=== PATIENT | male | born 1985 ===

== ENCOUNTER 2016-11-12 07:28 | Emergency (ER) | payer OTHER ==
[2016-11-12 07:50] VITALS: BMI 31.4
--- NOTE | 2016-11-12 08:17 | ED PDOC ---
Arrival/HPI - General Chief Complaint: Chest Pain Time Seen by Provider: 11/12/16 08:13 Historian: Patient - History of Present Illness Narrative History of Present Illness (Text): 11/12/16 09:23 A 31 year old male, who denies any past medical history, presents to the Emergency department complaining of one week duration retrosternal chest pain. Patient states chest pain is non-exertional, and denies any shortness of breath. Patient reports he had multiple episodes of chest pain in the past. Time/Duration: 1 week Symptom Onset: Gradual Symptom Course: Unchanged Activities at Onset: Rest Modifying Factors (Text): none Context: Work Associated Symptoms (Text): none Past Medical History - Provider Review Nursing Documentation Reviewed: Yes - Past History Past History: No Previous - Tetanus Immunization Tetanus Immunization: Unknown - Past Medical History Past Medical History: No Previous - Psychiatric Hx Substance Use: No - Past Surgical History Past Surgical History: No Previous - Anesthesia Hx Anesthesia: No Family/Social History - Physician Review Nursing Documentation Reviewed: Yes Family/Social History: No Known Family HX Smoking Status: Never Smoked Hx Alcohol Use: Yes Hx Substance Use: No Allergies/Home Meds Allergies/Adverse Reactions: Allergies No Known Allergies Allergy (Verified 11/12/16 07:50) Review of Systems - Physician Review All systems were reviewed & negative as marked: Yes Physical Exam - Physical Exam Narrative Physical Exam (Text): 11/12/16 09:33 - Review of Systems Constitutional: Normal. absent: Fatigue, Weight Change, Fevers Eyes: Normal ENT: Normal Respiratory: Normal absent: SOB, Cough, Sputum Cardiovascular: Present: Retrosternal Chest pain absent: Palpitations, Syncope Gastrointestinal: Normal absent: Abdominal pain, Diarrhea, Nausea, Vomiting Genitourinary: Normal. absent: Dysuria, Frequency, Hematuria Musculoskeletal: Normal. absent: Arthralgias, Back Pain, Neck Pain Skin: Normal Neurological: Normal absent: Focal Weakness Endocrine: Normal Hemo/Lymphatic: Normal Psychiatric: Normal - Physical exam Patient appears age appropriate, speaking full sentences without difficulty - Systems Exam Head: Present: Atraumatic, Normocephalic Pupils: Present: PERRL Extraocular Muscles: Present: EOMI Conjunctiva: Present: Normal Mouth: Present: Moist Mucous Membranes Neck: Present: Normal Range of Motion. No: MIDLINE TENDERNESS, Paraspinal Tenderness Respiratory/Chest: Present: Tachycardic, Clear to Auscultation, Good Air Exchange. No: Respiratory Distress, Accessory Muscle Use Cardiovascular: Present: Regular Rate and Rhythm, Normal S1, S2, Peripheral Pulses Present. No: Murmurs Abdomen: Present: Normal Bowel Sounds, No: Tenderness, Peritoneal Signs, Rebound, Guarding, Distention Back: Present: Normal Inspection. No: Midline Tenderness, Paraspinal Tenderness Upper Extremity: Present: Normal Inspection. No: Cyanosis, Edema Lower Extremity: Present: Normal Inspection. No: Edema Neurological: Present: GCS=15, Speech Normal, cranial nerves II through XII fully intact with no cerebellar abnormality, neuro-sensory fully intact. No focal neurological deficits. Skin: Present: Warm, Dry, Normal Color. No: Rashes Lymphatic: Present: OX3, NI, NC Psychiatric: Present: Alert, Oriented x 3, Normal Insight, Normal Concentration Vital Signs Reviewed: Yes Vital Signs Temp Pulse Resp BP Pulse Ox 11/12/16 08:37 98.6 F 99 H 18 147/67 98 11/12/16 08:30 98.8 F 115 H 140/80 Temperature: Afebrile Blood Pressure: Normal Pulse: Tachycardic Appearance: Positive for: Well-Appearing, Non-Toxic, Comfortable Pain Distress: None Mental Status: Positive for: Alert and Oriented X 3 Medical Decision Making ED Course and Treatment: 11/12/16 08:16 Impression: 31 year old male complaining of chest pain, with non acute physical exam findings. Plan: -- EKG -- Chest xray -- Labs -- Reassess and disposition Prior Visits: Notes and results from previous visits were reviewed. Patient last seen in the ED on 11/10/16 for similar complaint. Patient had no cardiac risk factors. Patient was advised close output follow up and return precautions. Progress Notes: Patient states made him an appointment with wrapping machine helper already and does not recall wrapping machine helper name. EKG: Ordered, reviewed, and independently interpreted the EKG. Rate : 88 BPM Rhythm : NSR Interpretation : No ST-segment elevations or depressions, no T-wave inversions, normal intervals. Comparison : No previous EKG for comparison. Chest xray: Creator : Perez Groves MD IMPRESSION: No active disease. 11/12/16 10:07 Had a long and extensive d/w patient about f/u with a wrapping machine helper for further workup and testing as well as a primary physician. Explained to patient that although his ER w/u did not show any acute abnormalities, patient still needs further testing which may include an echo, stress test, cardiac cath, or others. pt was offered observation in the hospital, but states he will f/u with a wrapping machine helper instead Pt states he understands to return to the ER right away for new or worsening symptoms or for inability to f/u with PMD or specialist as instructed. Patient states that he fully agrees with and understands discharge instructions. States that she agrees with the plan and disposition. Verbalized and repeated discharge instructions and plan. I have given the patient opportunity to ask any additional questions. - Lab Interpretations Lab Results: 11/12/16 09:00 11/12/16 09:00 Lab Results 11/12/16 09:00: WBC 6.8 D, RBC 4.94, Hgb 15.2, Hct 43.7, MCV 88.5, MCH 30.8, MCHC 34.8, RDW 12.4, Plt Count 252, MPV 10.8, Gran % 51.2, Lymph % (Auto) 39.0 H , [place] % (Auto) 7.2 H, Eos % (Auto) 2.2, Baso % (Auto) 0.4, Gran # 3.48, Lymph # 2.7, [place] # 0.5, Eos # 0.2, Baso # 0.03, PT 10.0, INR 0.93, APTT 28.2, D-Dimer , Quantitative 0.19, Sodium 139, Potassium 4.0, Chloride 102, Carbon Dioxide 23 , Anion Gap 18, BUN 15, Creatinine 0.8, Est GFR ( Amer) > 60, Est GFR ( Non-Af Amer) > 60, Random Glucose 106, Calcium 9.5, Total Bilirubin 0.8, AST 44 , ALT 60 H, Alkaline Phosphatase 105, Lactate Dehydrogenase 702 H, Total Creatine Kinase 165, Troponin I < 0.01, Total Protein 8.9 H, Albumin 4.9 H, Globulin 4.0, Albumin/Globulin Ratio 1.2 - RAD Interpretation Radiology Orders: 11/12/16 08:17 CHEST PORTABLE [RAD] Stat - Scribe Statement The provider has reviewed the documentation as recorded by the Brenden Chanel All medical record entries made by the Scribe were at my direction and personally dictated by me. I have reviewed the chart and agree that the record accurately reflects my personal performance of the history, physical exam, medical decision making, and the department course for this patient. I have also personally directed, reviewed, and agree with the discharge instructions and disposition. Disposition/Present on Arrival - Present on Arrival Any Indicators Present on Arrival: No History of DVT/PE: No History of Uncontrolled Diabetes: No Urinary Catheter: No History of Decub. Ulcer: No History Surgical Site Infection Following: None - Disposition Have Diagnosis and Disposition been Completed?: Yes Diagnosis: Chest pain Disposition: HOME/ ROUTINE Disposition Time: 10:12 Patient Plan: Discharge Condition: GOOD Discharge Instructions (ExitCare): Chest Pain (ED) Additional Instructions: PLEASE RETURN TO THE EMERGENCY DEPARTMENT FOR NEW OR WORSENING SYMPTOMS. RETURN RIGHT AWAY IF YOU CANNOT FOLLOW UP WITH YOUR PRIMARY CARE DOCTOR, CLINIC, OR SPECIALIST IN 1-2 DAYS. Referrals: PCP,GINA [Primary Care Provider] - Follow up with primary Jose Francisco Lyons MD [Staff Provider] - Follow up with primary Payam Contreras MD [Staff Provider] - Follow up with primary Forms: WORK NOTE
[2016-11-12 08:38] VITALS: RESP 18; TEMP 98.6
--- NOTE | 2016-11-12 08:56 | RAD ---
HISTORY: cough COMPARISON: 11/10/2016 FINDINGS: LUNGS: No active pulmonary disease. PLEURA: No significant pleural effusion identified, no pneumothorax apparent. CARDIOVASCULAR: Normal. OSSEOUS STRUCTURES: No significant abnormalities. VISUALIZED UPPER ABDOMEN: Normal. OTHER FINDINGS: None. IMPRESSION: No active disease.
[2016-11-12 09:12] LABS: ADD MANUAL DIFF? NO
[2016-11-12 09:17] LABS: BASO # 0.03 K/mm3 (0.0-2.0); BASO % 0.4 % (0.0-3.0); EOS # 0.2 (0.0-0.7); EOS % 2.2 % (1.5-5.0); GRAN # 3.48 (1.4-6.5); GRAN % 51.2 % (50.0-68.0); HEMATOCRIT 43.7 % (42.0-52.0); LYMPH # 2.7 (1.2-3.4); MEAN CELL VOLUME 88.5 fL (80.0-105.0); MEAN CORPUSCULAR HEMOGLOBIN 30.8 pg (25.0-35.0); MEAN CORPUSCULAR HGB CONC 34.8 g/dl (31.0-37.0); MEAN PLATELET VOLUME 10.8 fl (7.0-11.0); MONO # 0.5 (0.1-0.6); MONO % 7.2 % (1.0-6.0); PLATELET COUNT 252 10^3/uL (120.0-450.0); RED CELL DISTRIBUTION WIDTH 12.4 % (11.5-14.5); WHITE BLOOD COUNT 6.8 10^3/ul (4.5-11.0)
[2016-11-12 09:29] LABS: ALB/GLOB RATIO 1.2 (1.1-1.8); ALKALINE PHOSPHATASE 105 U/L (38-133); ALT/SGPT 60 U/L (7-56); AST/SGOT 44 U/L (15-59); BILIRUBIN,TOTAL 0.8 mg/dL (0.2-1.3); BLOOD UREA NITROGEN 15 mg/dL (7-21); CALCIUM 9.5 mg/dL (8.4-10.5); CARBON DIOXIDE 23 mmol/L (21-33); CHLORIDE 102 mmol/L (95-110); GFR AFRICAN-AMERICAN > 60; GLUCOSE,RANDOM 106 mg/dL (70-110); SODIUM 139 mmol/L (132-148); TOTAL PROTEIN 8.9 g/dL (5.8-8.3)
[2016-11-12 09:57] LABS: INR 0.93 (0.93-1.08); PARTIAL THROMBOPLASTIN TIME 28.2 Seconds (23.7-30.8)
[2016-11-12 09:58] LABS: D DIMER 0.19 mg/L FEU (0-0.50); TROPONIN I < 0.01 ng/mL
[2016-11-12 10:48] VITALS: BP 126/80; PULSE 76; O2SAT 96
--- NOTE | 2016-11-12 12:42 | CARD ---
APPROVED REPORT EKG Measurement Heart [id number] <Conclusion> Normal sinus rhythm Right bundle branch block Abnormal ECG
== END 2016-11-12 10:48 | disposition home or self-care (01) ==
LOC: ED 07:28
DX: R07.9 Chest pain, unspecified (principal)